=== PATIENT | male | born 1950 | race Caucasian/White ===

== ENCOUNTER 2025-07-26 14:04 | Outpatient (CLI) | payer OTHER | END 2025-07-26 14:05 | disposition home or self-care (01) | LOC: ULT 14:04 | PROVIDERS: ATTEND Nurse Practitioner Family | DX: R79.89 Other specified abnormal findings of blood chemistry (principal); R33.9 Retention of urine, unspecified; Z87.898 Personal history of other specified conditions | CPT/HCPCS: 76770 ==